=== PATIENT | female | born 1965 | race Caucasian/White ===

== ENCOUNTER 2018-09-11 17:15 | Outpatient (CLI) | payer OTHER | END 2018-09-11 17:39 | disposition home or self-care (01) | LOC: LAB 17:15 | DX: N30.00 Acute cystitis without hematuria (principal) ==

== ENCOUNTER 2018-09-29 11:02 | Outpatient (CLI) | payer OTHER | END 2018-09-29 14:44 | disposition home or self-care (01) | LOC: TOM 11:02 | DX: N20.0 Calculus of kidney (principal); N39.0 Urinary tract infection, site not specified ==